=== PATIENT | female | born 1950 | race Caucasian/White ===

== ENCOUNTER 2017-06-29 17:24 | Inpatient (IN) | payer MEDICARE, OTHER ==
[~2017-06-29] VITALS: Ht 160 cm; Wt 101.6 kg
--- NOTE | ~2017-06-29 | EKG ---
PATIENT: MELISSA WYATT UNIT #: [id number] Ventricular Rate: 96 BPM Atrial Rate: 96 BPM P-R Interval: 188 ms QRS Duration: 80 ms Q-T Interval: 358 ms QTC Calculation(Bezet): 452 ms P [place]: 5 degrees Calculated R [place]: 86 degrees Calculated T [place]: 61 degrees Diagnosis Line: Normal sinus rhythm Diagnosis Line: Normal ECG Diagnosis Line: No previous ECGs available Diagnosis Line: Confirmed by NARINDER SHARMA MD ([id number]) on 07/01/2017 Diagnosis Line: 4:37:29 PM INTERPRETING MD: ZACHARY TEMPLE
--- NOTE | ~2017-06-29 | CR63 ---
[facility] A Service of [facility] RADIOLOGY TEXT RESULTS PATIENT: MELISSA WYATT LOCATION: [facility] [id number] : [birth year] UNIT #: [id number] AGE: [address]: ESTHER WHITE V SEX: F ORDER DR: [id number] [facility] [address] [place], [place] [address] [id number] I MR#: [id number] Acc #: [id number] NAME: MELISSA WYATT. : 1950 SEX: F STUDY DATE/TIME: 06/30/2017 7:19 UNIT: [facility] ROOM: [facility] STUDY DESCRIPTION: CR Chest 2 View Attending Physician: Esther White M.D. Ordering Physician: Rupali Jin M.D. Primary Care Physician: Paulo Sawant M.D. MEDICAL IMAGING REPORT This report is preliminary unless electronic signature is present EXAM Frontal chest 06/30/2017 INDICATION 67-year-old female with COPD, dizziness, weakness, symptoms began today. Short of breath. TECHNIQUE Frontal chest performed and compared with 08/17/2015. FINDINGS Postop changes of thoracolumbar fusion. The heart is enlarged but stable. Mediastinal prominence unchanged for technical factors. Vascularity within normal limits. Lung volumes are low. The right lung is clear and there is persistent pleural reaction or less likely chronic pleural fluid on the left with associated probable atelectasis in the left lung base. There is pleural thickening in the left lung apex unchanged as well. IMPRESSION Low lung volumes with persistent cardiomegaly. Opacities in the left lung base favored to represent chronic atelectasis and pleural reaction rather than pleural fluid. Dictated by... Perry Nuñez M.D. THIS IS AN ELECTRONICALLY VERIFIED REPORT Perry Nuñez M.D. at 06/30/2017 1:43 PM Robert TD: 06/30/2017 12:27 JOB #: [id number] [facility] A Service of [facility] RADIOLOGY TEXT RESULTS PATIENT: MELISSA WYATT LOCATION: [facility] [id number] : [birth year] UNIT #: [id number] AGE: [address]: CINDY,ESTHER V SEX: F ORDER DR: MEDICAL IMAGING REPORT Page 1 of 1 COPY
--- NOTE | ~2017-06-29 | CT4 ---
[facility] A Service of [facility] RADIOLOGY TEXT RESULTS PATIENT: MELISSA WYATT LOCATION: [place] [address] : [birth year] UNIT #: [id number] AGE: [address]: FLORENTIN WHITEUJ V SEX: F ORDER DR: [id number] [address] [address] [id number] E MR#: [id number] Acc #: [id number] NAME: MELISSA WYATT : 1950 SEX: F STUDY DATE/TIME: 06/29/2017 18:21 UNIT: SED ROOM: STUDY DESCRIPTION: CT Abd and Pelv Wo Cont Attending Physician: Killian Nichols M.D. Ordering Physician: Priyanka Guerrero M.D. Primary Care Physician: Paulo Sawant M.D. MEDICAL IMAGING REPORT This report is preliminary unless electronic signature is present. EXAM CT abdomen and pelvis without contrast. HISTORY Left side abdomen pain and diarrhea for [address] exam was performed with one or more of the following radiation dose reduction techniques: automatic exposure control, adjustment of mA and/or kV according to patient size, and iterative reconstruction. FINDINGS CT abdomen and pelvis was performed without contrast. CT ABDOMEN: Morphologic changes of cirrhosis with nodular hepatic contour and relative hypertrophy of the left hepatic lobe and caudate lobe. The spleen, pancreas, kidneys, and adrenal glands are normal. 2 mm nonobstructing stone in the mid right kidney. Normal caliber abdominal aorta. No adenopathy. No ascites. No bowel dilatation. No inflammatory stranding. Multilevel spinal fusion from the lower thoracic to mid lumbar spine. CT PELVIS: Small calcified uterine fibroid measures approximately 1.5 cm. Sigmoid diverticulosis but no diverticulitis. No free fluid. Urinary bladder is normal. IMPRESSION 1. No acute findings. 2. No urinary obstruction. 3. 2 mm nonobstructing stone in the mid right kidney. 4. Sigmoid diverticulosis but no diverticulitis. 5. Incidental 1.5 cm calcified uterine fibroid. [facility] A Service of [facility] RADIOLOGY TEXT RESULTS PATIENT: MELISSA WYATT LOCATION: [place] [address]- : [birth year] UNIT #: [id number] AGE: [address]: ESTHER WHITE V SEX: F ORDER DR: 6. Morphologic changes of cirrhosis. Dictated by... Rafael Meng M.D. THIS IS AN ELECTRONICALLY VERIFIED REPORT Rafael Meng M.D. at 06/30/2017 11:22 PM CASE/rylee TD: 06/30/2017 00:06 JOB #: [id number] MEDICAL IMAGING REPORT Page 1 of 1
--- NOTE | ~2017-06-29 | DS ---
Unit #: [id number] #: [id number] Patient: MELISSA WYATT [id number] [address] [place], [place] [address] [id number] I MR#: [id number] NAME: MELISSA WYATT. ROOM: [facility] Age: 67 Sex: F Admission Date: 06/29/2017 : 1950 Discharge Date: 07/02/2017 Attending Physician: Corbin Pak M.D. Primary Care Physician: Paulo Sawant M.D. DISCHARGE SUMMARY FINAL DIAGNOSES Hyponatremia. SECONDARY DIAGNOSES 1. Hypertension. 2. Gastroesophageal reflux disease. 3. Depression. 4. Chronic back pain. 5. Chronic obstructive pulmonary disease. 6. Diabetes mellitus. CONSULTS Dr. Luc Johnson. HOSPITAL COURSE The patient is a 67-year-old female who presented with hyponatremia. Sodium was as low as 110. She has a history of some cirrhosis, diabetes and some depression. She was on SSRI, as well as diuretics. Nephrology was consulted who felt that this may have been multifactorial. Diuretics were discontinued, as well as Lexapro. 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 Her sodium was up to 127 today. She is evaluated, suitable and stable for discharge with outpatient follow up. She feels better today. We will discharge the patient home with home health if she is agreeable. MEDICATIONS ON DISCHARGE 1. Neurontin 300 mg p.o. q.8 hours. 2. Zyban 150 mg p.o. daily. 3. Lexapro is discontinued. 4. Metformin 500 mg p.o. b.i.d. per home dose. 5. Klonopin 0.5 mg p.o. per home dose. 6. Triamterene/Hydrochlorothiazide has been discontinued. 7. Norvasc 5 mg p.o. daily. 8. Lortab 10/325 mg 1 tablet p.o. q.4 hours p.r.n. pain per home dose. 9. Omeprazole per home dose. 10. Robaxin 750 mg p.o. q.8 hours per home dose. DISCHARGE PLAN She is to schedule followup with her PCP in next 3-5 days. NOTE: Time spent 22 minutes. Unit #: [id number] #: [id number] Patient: MELISSA WYATT Dictated by... Helen Stone TD: 07/02/2017 14:32 JOB #: [id number] DISCHARGE SUMMARY Page 1 of 1 X Koko Carney MD DISCHARGE SUMMARY
--- NOTE | ~2017-06-29 | US84 ---
[id number] [facility] [address] [place], [place] [address] [id number] I MR#: [id number] Acc #: [id number] NAME: MELISSA WYATT : 1950 SEX: F STUDY DATE/TIME: 06/30/2017 7:50 UNIT: [facility] ROOM: 574 STUDY DESCRIPTION: US LE Veins Complete Khai Stdy Attending Physician: Corbin Pak M.D. Ordering Physician: Rupali Jin M.D. Primary Care Physician: Paulo Sawant M.D. MEDICAL IMAGING REPORT This report is preliminary unless electronic signature is present EXAM Bilateral lower extremity venous duplex 06/30/2017 HISTORY Bilateral lower extremity pain for 1 year, worsening in the last week with increasing shortness of breath. Evaluate for deep vein thrombosis. TECHNIQUE Venous ultrasound examination of both lower extremities was performed using grayscale, spectral Doppler and color flow Doppler imaging. FINDINGS The examination is negative. There is no evidence of deep venous thrombus from the groin to the lower calf bilaterally. Visualized greater saphenous veins are also patent. IMPRESSION Negative examination. No evidence of lower extremity deep venous thrombosis. Dictated by... Kasi Mendieta M.D. THIS IS AN ELECTRONICALLY VERIFIED REPORT Kasi Mendieta M.D. at 07/01/2017 7:27 AM TIESHA/lindy TD: 06/30/2017 12:30 JOB #: [id number] MEDICAL IMAGING REPORT Page 1 of 1 COPY
--- NOTE | ~2017-06-29 | CO ---
Unit #: [id number] #: [id number] Patient: MARIIA CARMICHAEL [id number] [address] [address] [id number] I MR#: [id number] NAME: MARIIA CARMICHAEL. ROOM: 574 Age: 67 Sex: F Admission Date: 06/29/2017 : 1950 Attending Physician: Corbin Pak M.D. Primary Care Physician: Paulo Sawant M.D. Consultation Date: 06/30/2017 CONSULTATION REPORT REASON FOR CONSULTATION Hyponatremia. Thank you very much for asking me to see this patient in consultation. HISTORY OF PRESENT ILLNESS Ms. Mariia Carmichael is a 67-year-old female, who has a history of underlying chronic obstructive pulmonary disease, hypertension, diabetes, who presented to the hospital with one week of weakness, dizziness, nausea, intermittent diarrhea, some numbness in her hands and feet, who upon presentation to [facility] had a sodium of 110. She was transferred here and admitted. She was started on IV fluids. Her sodium is up to 114 this morning. Because of this sodium problem I was asked to see the patient. The patient states that she never had any problem with her sodium that she knows of, and on reviewing her records in August 2015 she had a sodium of 135, in January 2015 128, and May 2009 a sodium of 132. She was started on normal saline here and several medicines were changed including her Dyazide was discontinued and her Lexapro was discontinued. She currently states that she is feeling some better but no nausea, still has some chronic back pain, no significant diarrhea currently, no chest pain, no shortness of breath, no urinary symptoms, no significant swelling. PAST MEDICAL HISTORY 1. History of chronic obstructive pulmonary disease. 2. History of hypertension. 3. History of non insulin dependent diabetes mellitus. 4. History of arthritis. 5. History of anxiety. 6. History of depression. 7. History of chronic back pain. 8. Status post cholecystectomy. 9. She has a history of gastroesophageal reflux disease. ALLERGIES No known drug allergies. SOCIAL HISTORY She still smokes but no alcohol since 2014. HOME MEDICATIONS Include: 1. Dyazide 2. Lexapro Unit #: [id number] #: [id number] Patient: CARMICHAEL,MARIIA E 3. Glucophage 4. Omeprazole 5. Neurontin 6. Zyban 7. Klonopin 8. Lortab 9. Robaxin REVIEW OF SYSTEMS As mentioned in the history of present illness, otherwise negative. FAMILY HISTORY Noncontributory. PHYSICAL EXAMINATION GENERAL: She is alert and oriented. VITAL SIGNS: Temperature is 98.2, pulse 83-101, blood pressure 113-160/69-88. HEENT: She is normocephalic, atraumatic. Pupils are equal, round, and reactive to light. Extraocular muscles are intact. TMs appear to be normal. Mouth, clear. No erythema. No exudate. NECK: Supple. No jugular venous distention. No lymphadenopathy. CARDIAC: She appears to have a regular rhythm without a rub, no S3 or S4. LUNGS: Clear bilaterally. No wheezes, rhonchi, or rales. ABDOMEN: Obese. Bowel sounds positive. Nontender. Soft. EXTREMITIES: She has no lower extremity swelling, pulses are intact to the lower extremities. JOINTS: No joint pain or joint swelling. SKIN: No rashes. NEURO: Appears to be intact to motor and sensory grossly. : Deferred. DIAGNOSTIC STUDIES LABORATORY: Laboratory data this morning shows sodium 114, potassium 3.5, chloride 78, bicarb is 27, BUN of 13, creatinine 0.9, glucose of 114, calcium is 8.6, magnesium is 2, albumin is 4.4, BNP 63. Serum osmolality 242. TSH is 0.59. INR is 1.2. ABG shows pH 7.263, pCO2 of 52, pO2 of 59 on room air. Hemoglobin is 11.5, white count 10,500, platelets 242,000. Urinalysis showed specific gravity of 1.03, otherwise negative. IMAGING: CT of the abdomen and pelvis showed two small nonobstructing stones in the right kidney, diverticulosis, but not diverticulitis, and a cirrhotic pattern on the liver. ASSESSMENT/PLAN Hyponatremia, this is a lady who has either euvolemia vs a hypovolemic, hyponatremia. Her sodium has come up from 110 to 114, so certainly heading in the right direction, and moving very slow correction. Certainly she has multiple etiologies of her hyponatremia including her Dyazide diuretic with hydrochlorothiazide vs increased water intake vs possible SIADH from chronic obstructive pulmonary disease and Lexapro vs volume depletion from diarrhea vs other. I am going to keep her on some normal saline decrease the rate to 60, her sodium has not improved in the last couple of hours, so unsure if some of this could be a SIADH-type picture. I am going to put her on a p.o. fluid restriction, continue BNP q.4 hours stat and have them call me with those results for now. We will check a cortisol level in the a.m. as well as a magnesium phosphorous uric acid and will also given one dose of potassium today as well and again Unit #: [id number] #: [id number] Patient: MARIIA CARMICHAEL fluid restriction and IV fluids, hold the medications and will follow very closely. Dictated by..Helen Garcia/milli TD: 07/01/2017 07:55 JOB #: [id number] CONSULTATION REPORT Page 1 of 1 X Emmy Johnson MD X CONSULTATION REPORT
--- NOTE | ~2017-06-29 | HP ---
Unit #: [id number] #: [id number] Patient: MELISSA WYATT [id number] [address] [address] [id number] I MR#: [id number] NAME: MELISSA WYATT. ROOM: 574 Age: 67 Sex: F Admission Date: 06/29/2017 : 1950 Attending Physician: Karla Washington M.D. Primary Care Physician: Paulo Sawant M.D. HISTORY AND PHYSICAL CHIEF COMPLAINT Hyponatremia. HISTORY This pleasant 67-year-old female with AODM, hypertension, anxiety/depression, chronic back pain, was transferred from [facility] emergency department for hyponatremia. Patient complains of chronic leg pain. She states, however, that over the past week she has felt weaker in her legs, is nauseous, and experiencing quite a bit of diarrhea along with generalized weakness and dizziness. She has been drinking quite a bit of water, but not taking in other food or beverages. She presented to [facility] emergency department this evening where her sodium was found to be 110. She was bolused with 500 mL of saline, given Zofran and 2 g of magnesium sulfate for a low magnesium. Current sodium is 112. Patient does have a history of cirrhosis likely related to prior alcohol abuse. She also takes an SSRI and Dyazide, likely contributing to her hyponatremia. Her main concern currently is that of her chronic leg pain and insomnia. PAST MEDICAL HISTORY 1. AODM with likely peripheral neuropathy. 2. Essential hypertension. 3. Anxiety and depression. 4. Chronic back pain. 5. GERD. 6. COPD. ALLERGIES None. HOME MEDICATIONS 1. Lortab 10/325 one tablet q.4 hours as needed. 2. KlonoPIN 0.5 mg b.i.d. 3. Zyban SR 150 mg daily. 4. Neurontin 300 mg t.i.d. 5. Robaxin 750 mg t.i.d. 6. Metformin 500 mg b.i.d. 7. Lexapro 20 mg daily. 8. Dyazide 1 each day. 9. Omeprazole 20 mg daily. FAMILY HISTORY Cirrhosis secondary to alcohol abuse. Unit #: [id number] #: [id number] Patient: MELISSA WYATT SOCIAL HISTORY The patient lives with her fiance. She stopped drinking in 2014. She smokes two packs per day of tobacco. REVIEW OF SYSTEMS Notable for insomnia, chronic leg pain, weakness, dizziness, nausea, diarrhea, diabetes, hypertension, anxiety, depression, back pain, GERD, COPD, tobacco abuse, and abovementioned surgeries. All other systems were reviewed and otherwise negative. PHYSICAL EXAMINATION GENERAL APPEARANCE: 67-year-old, morbidly obese female currently in no acute distress. VITAL SIGNS: Temperature 97.9, pulse 99, respirations 20, blood pressure 177/99, and O2 saturation is 96% on room air. HEENT: Eyes: PERRLA. Extraocular muscles are intact. Pharynx is benign. NECK: Supple without adenopathy or thyromegaly. CHEST: Clear. CARDIAC: Normal S1 and S2 without S3, S4, or murmur. ABDOMEN: Bowels sounds are present. Mild hepatomegaly on exam. Nontender. No masses. EXTREMITIES: Without C, C, or E. NEUROLOGIC: Patient is awake and alert. She seems a little bit confused. Her cranial nerves are intact, except that she is hard of hearing. She has equal strength throughout, but is generally weak. DIAGNOSTIC STUDIES LABS: Hematocrit is 35.9 and normal white count and platelet count. Cardiac markers are negative. Normal coags. SMA-12: Glucose is 122; sodium 110, which has improved to 112; chloride 71; BUN 18; creatinine 1.2; AST 48; and magnesium 1.5. Alcohol level negligible. BNP and lipase normal. Urinalysis: Specific gravity greater than 1.030. IMAGING: CT scan of the abdomen and pelvis show cirrhosis, fibroid uterus, nonobstructing kidney stone, diverticular disease. CARDIOVASCULAR: EKG: Normal sinus rhythm, rate 96. Normal appearing. ASSESSMENT 1. Hyponatremia, likely multifactorial. Patient is on an SSRI and Dyazide. Also has underlying cirrhosis. May also be a bit dehydrated with current nausea and diarrhea as her specific gravity is greater than 1.030. She has had limited p.o. intake recently, except for drinking water. 2. Nausea and diarrhea. 3. Essential hypertension. 4. Anxiety and depression. 5. Chronic obstructive pulmonary disease and ongoing tobacco abuse. 6. Adult-onset diabetes mellitus with likely peripheral neuropathy and chronic leg pain. 7. Cirrhosis. Patient stopped drinking in 2014. 8. Chronic pain. 9. Gastroesophageal reflux disease. PLANS 1. Change Dyazide to Norvasc. Unit #: [id number] #: [id number] Patient: MELISSA WYATT 2. Gentle normal saline and monitor chemistries carefully. 3. Hold SSRI. 4. Check thyroid function test and chest x-ray. 5. Obtain urine sodium. 6. Stool cultures. 7. Change water to other beverages. 8. Low dose Lovenox for DVT prophylaxis. 9. Check bilateral venous Dopplers of the legs as daughter has concerns about patient's chronic leg pain. Dictated by Heeln Ibarra/nahun TD: 06/30/2017 05:13 JOB #: [id number] CC: Ana Zamora Aprn HISTORY AND PHYSICAL Page 1 of 1 X Rupali Jin MD HISTORY AND PHYSICAL
[~2017-06-29 17:24] MED LIST: COZAAR PO; EFFEXOR PO; HYDROCODON-ACE1 EAC5 PO; KLONOPIN PO; KLONOPIN1 MG PO; LEVAQUIN PO; LEVAQUIN750 M1 PO; LEXAPRO PO; MEDROL PO; NORVASC PO; OMEPRAZOLE20 M1 PO; TRIAMTERENE-HCT1 TA8 PO; VICODIN PO
[2017-06-29] MEDS ORDERED: WELLBUTRIN SR150 M1 (17:40)
[2017-06-29] MEDS ORDERED: DYAZIDE 371 CAP 37.5 (17:41)
[2017-06-29] MEDS ORDERED: ROBAXIN 750750 MG (17:41)
[2017-06-29] MEDS ORDERED: GLUCOPHAGE500 MG (17:41)
[2017-06-29] MEDS ORDERED: LEXAPRO20 MG ×2 (17:41→17:42)
[2017-06-29] MEDS ORDERED: GABAPENTIN300 MG (17:41)
[2017-06-29] MEDS ORDERED: OMEPRAZOLE40 M1 ×2 (17:42→23:28)
[2017-06-29 18:18] LABS: BASOPHIL# 0.1 X10e3 (0-0.3); DIFF IND NO; EOSINOPHIL# 0.1 X10e3 (0-0.7); EOSINOPHIL% 1.3 % (0.0-7.0); HEMATOCRIT 35.9 % (35.0-45.0); HEMOGLOBIN 12.5 gm/dL (12.0-16.0); LYMPHOCYTE# 1.4 X10e3 (1.0-3.5); LYMPHOCYTE% 13.3 % (17.0-45.0); MEAN CORPUSCULAR HEMOGLOBIN 27.4 PG (28-34); MEAN CORPUSCULAR HGB CONC 34.7 g/dL (30-36); MEAN PLATELET VOLUME 7.6 FL (6.5-11.5); MONOCYTE# 0.5 X10e3 (0-1.0); MONOCYTE% 5.1 % (3.0-12.0); NEUTROPHIL# 8.3 X10e3 (1.5-7.1); NEUTROPHIL% 79.3 % (40-75); PLATELET COUNT 267 X10e3 (140-420); RED BLOOD COUNT 4.54 X10e (3.90-5.30); RED CELL DISTRIBUTION WIDTH 15.5 % (11.0-15.5); WHITE BLOOD COUNT 10.4 X10e3 (4.0-10.5)
[2017-06-29 18:31] LABS: INR 1.2; PROTHROMBIN TIME (PATIENT) 14.1 SECONDS (9.5-12.4)
[2017-06-29 18:34] LABS: POC - CKMB 7.3 ng/mL (0.0-7.9)
[2017-06-29 18:35] LABS: POC - MYOGLOBIN >500.0 ng/mL (0.0-169.0); POC - TROPONIN <0.05 ng/mL (<=0.05)
[2017-06-29 18:36] LABS: MAGNESIUM 1.5 mg/dL (1.6-3.0)
[2017-06-29 18:43] LABS: ALBUMIN SERUM 4.4 g/dL (3.5-5.0); ALKALINE PHOSPHATASE 73 U/L (32-92); ALT (SGPT) 26 U/L (10-40); AST (SGOT) 48 U/L (10-42); BILIRUBIN,TOTAL 0.6 mg/dL (0.2-2.0); BLOOD UREA NITROGEN 18 mg/dL (9-23); CALCIUM SERUM 9.3 mg/dL (8.4-10.2); CARBON DIOXIDE 27 mmol/L (22-31); CHLORIDE 71 mmol/L (100-111); CREATININE SERUM 1.2 mg/dL (0.6-1.4); GLOM FILT RATE Estimated 47.4 mL/min (>60); GLUCOSE FASTING 122 mg/dL (70-110); LIPASE 34 U/L (22-51); POTASSIUM 4.2 mmol/L (3.5-5.1); PROTEIN TOTAL SERUM 8.3 g/dL (6.0-8.3)
[2017-06-29 18:44] LABS: ALCOHOL BLOOD <5 mg/dL ([, 0]); BILIRUBIN, DIRECT <0.1 mg/dL (0.0-0.2); BILIRUBIN,INDIRECT 0.5 mg/dL (0.0-0.9); SODIUM 110 mmol/L (135-145)
[2017-06-29 18:57] LABS: URINE SOURCE CLEAN CATCH
[2017-06-29 18:59] LABS: URINE APPEARANCE CLEAR; URINE BLOOD NEG (NEG); URINE COLOR YELLOW; URINE GLUCOSE NEG (NORM); URINE KETONE NEG (NEG); URINE LEUKOCYTE ESTERASE NEG (NEG); URINE NITRATE NEG (NEG); URINE PH 5.5 (5-8); URINE PROTEIN NEG (NEG); URINE SPECIFIC GRAVITY >=1.030 (1.003-1.035); URINE UROBILINOGEN 0.2 MG/DL (NORM)
[2017-06-29 19:01] LABS: MICRO INDICATED? NO; URINE BILIRUBIN NEG (NEG)
[2017-06-29 20:55] LABS: POC - CKMB 6.5 ng/mL (0.0-7.9); POC - MYOGLOBIN >500.0 ng/mL (0.0-169.0); POC - TROPONIN <0.05 ng/mL (<=0.05)
[2017-06-29] MEDS ORDERED: LORTAB 10-3251 EACH PO (23:17)
[2017-06-29] MEDS ORDERED: KLONOPIN0.5 M3 PO (23:20)
[2017-06-29] MEDS ORDERED: WELLBUTRIN SR150 MG PO (23:21)
[2017-06-29] MEDS ORDERED: NEURONTIN300 MG PO (23:21)
[2017-06-29] MEDS ORDERED: ROBAXIN 750750 M1 PO (23:25)
[2017-06-29] MEDS ORDERED: GLUCOPHAGE500 MG PO (23:26)
[2017-06-29] MEDS ORDERED: LEXAPRO20 MG PO (23:27)
[2017-06-29] MEDS ORDERED: DYAZIDE 37.5-21 EACH (23:28)
[2017-06-29 23:32] LABS: GLOM FILT RATE Estimated 59.1 mL/min (>60)
[2017-06-30 03:16] LABS: BASOPHIL# 0.1 X10e3 (0-0.3); BASOPHIL% 1.1 % (0-2.5); DIFF IND NO; EOSINOPHIL# 0.1 X10e3 (0-0.7); HEMATOCRIT 33.5 % (35.0-45.0); HEMOGLOBIN 11.5 gm/dL (12.0-16.0); LYMPHOCYTE# 1.9 X10e3 (1.0-3.5); LYMPHOCYTE% 17.9 % (17.0-45.0); MEAN CORPUSCULAR HEMOGLOBIN 27.6 PG (28-34); MEAN CORPUSCULAR HGB CONC 34.5 g/dL (30-36); MEAN PLATELET VOLUME 7.5 FL (6.5-11.5); MONOCYTE# 0.6 X10e3 (0-1.0); MONOCYTE% 5.9 % (3.0-12.0); NEUTROPHIL# 7.8 X10e3 (1.5-7.1); NEUTROPHIL% 74.1 % (40-75); PLATELET COUNT 242 X10e3 (140-420); RED BLOOD COUNT 4.18 X10e (3.90-5.30); RED CELL DISTRIBUTION WIDTH 15.3 % (11.0-15.5); WHITE BLOOD COUNT 10.5 X10e3 (4.0-10.5)
[2017-06-30 03:42] LABS: CALCIUM SERUM 8.7 mg/dL (8.4-10.2); GLOM FILT RATE Estimated 59.1 mL/min (>60); POTASSIUM 3.6 mmol/L (3.5-5.1)
[2017-06-30 07:19] LABS: THYROID STIMULATING HORMONE 0.59 uIU/ml (0.34-5.60)
[2017-06-30 07:28] LABS: FREE THYROXIN (T4) 0.94 ng/dL (0.58-1.64)
[2017-06-30 09:13] LABS: CALCIUM SERUM 8.8 mg/dL (8.4-10.2); GLOM FILT RATE Estimated 59.1 mL/min (>60); POTASSIUM 3.6 mmol/L (3.5-5.1)
[2017-06-30 10:31] LABS: ARTERIAL BLD GAS O2 SATURATION 87.8 % (90.0-100.0); ARTERIAL BLOOD GAS CARBOXY HB 1.7 %sat (0.0-9.0); ARTERIAL BLOOD GAS HCO3 29.7 mmol/L; ARTERIAL BLOOD GAS MET HB 0.8 %sat (0.0-2.0); ARTERIAL BLOOD GAS pH 7.363 (7.350-7.450)
[2017-06-30 10:32] LABS: ARTERIAL BLOOD GAS ALLEN TEST NORMAL; ARTERIAL BLOOD GAS ART SITE RIGHT RADIAL; ARTERIAL BLOOD GAS DELIVERY ROOM AIR; ARTERIAL BLOOD GAS PCO2 52.3 mmHg (35.0-45.0); ARTERIAL BLOOD GAS PO2 59.6 mmHg (80.0-100); ARTERIAL DRAW? YES
[2017-06-30 11:19] LABS: BUN/CREATININE RATIO 14.44; CALCIUM SERUM 8.6 mg/dL (8.4-10.2); CREATININE SERUM 0.9 mg/dL (0.6-1.4); GLOM FILT RATE Estimated 67.1 mL/min (>60); POTASSIUM 3.5 mmol/L (3.5-5.1)
[2017-06-30 14:08] LABS: CALCIUM SERUM 8.7 mg/dL (8.4-10.2); GLOM FILT RATE Estimated 59.1 mL/min (>60); POTASSIUM 3.7 mmol/L (3.5-5.1)
[2017-06-30 17:45] LABS: BUN/CREATININE RATIO 16.25; CALCIUM SERUM 8.8 mg/dL (8.4-10.2); CREATININE SERUM 0.8 mg/dL (0.6-1.4); GLOM FILT RATE Estimated 77.4 mL/min (>60); POTASSIUM 3.7 mmol/L (3.5-5.1)
[2017-06-30 18:44] LABS: SODIUM URINE RANDOM 13 mmol/L
[2017-06-30 19:06] LABS: OSMOLALITY,URINE 358 mOsmo/kg (250-900)
[2017-06-30 21:53] LABS: BUN/CREATININE RATIO 14.44; CALCIUM SERUM 9.1 mg/dL (8.4-10.2); CREATININE SERUM 0.9 mg/dL (0.6-1.4); GLOM FILT RATE Estimated 67.1 mL/min (>60); POTASSIUM 4.1 mmol/L (3.5-5.1)
[2017-07-01 03:41] LABS: ARTERIAL BLD GAS O2 SATURATION 97.1 % (90.0-100.0); ARTERIAL BLOOD GAS CARBOXY HB 0.1 %sat (0.0-9.0); ARTERIAL BLOOD GAS MET HB 0.6 %sat (0.0-2.0); ARTERIAL BLOOD GAS pH 7.382 (7.350-7.450)
[2017-07-01 03:43] LABS: ARTERIAL BLOOD GAS ALLEN TEST NORMAL; ARTERIAL BLOOD GAS ART SITE LEFT RADIAL; ARTERIAL BLOOD GAS DELIVERY NASAL CANNULA; ARTERIAL BLOOD GAS PCO2 50.6 mmHg (35.0-45.0); ARTERIAL DRAW? YES
[2017-07-01 06:48] LABS: CALCIUM SERUM 8.9 mg/dL (8.4-10.2); CREATININE SERUM 0.8 mg/dL (0.6-1.4); GLOM FILT RATE Estimated 77.4 mL/min (>60); MAGNESIUM 1.7 mg/dL (1.6-3.0); PHOSPHOROUS 3.8 mg/dL (2.5-4.6); POTASSIUM 3.8 mmol/L (3.5-5.1); URIC ACID 5.8 mg/dL (2.6-7.2)
[2017-07-01 09:50] LABS: CALCIUM SERUM 8.9 mg/dL (8.4-10.2); GLOM FILT RATE Estimated 59.1 mL/min (>60); POTASSIUM 3.9 mmol/L (3.5-5.1)
[2017-07-01 14:09] LABS: CALCIUM SERUM 9.1 mg/dL (8.4-10.2); GLOM FILT RATE Estimated 59.1 mL/min (>60); POTASSIUM 3.9 mmol/L (3.5-5.1)
[2017-07-01 16:45] LABS: BUN/CREATININE RATIO 12.22; CALCIUM SERUM 8.8 mg/dL (8.4-10.2); CREATININE SERUM 0.9 mg/dL (0.6-1.4); GLOM FILT RATE Estimated 67.1 mL/min (>60); POTASSIUM 4.2 mmol/L (3.5-5.1)
[2017-07-01 21:46] LABS: BUN/CREATININE RATIO 10.9; CALCIUM SERUM 8.7 mg/dL (8.4-10.2); CREATININE SERUM 1.1 mg/dL (0.6-1.4); GLOM FILT RATE Estimated 52.7 mL/min (>60); POTASSIUM 4.3 mmol/L (3.5-5.1)
[2017-07-02 01:21] LABS: BUN/CREATININE RATIO 12.22; CALCIUM SERUM 8.6 mg/dL (8.4-10.2); CREATININE SERUM 0.9 mg/dL (0.6-1.4); GLOM FILT RATE Estimated 67.1 mL/min (>60); POTASSIUM 4.5 mmol/L (3.5-5.1)
[2017-07-02 08:23] LABS: CALCIUM SERUM 8.6 mg/dL (8.4-10.2); GLOM FILT RATE Estimated 59.1 mL/min (>60); MAGNESIUM 1.9 mg/dL (1.6-3.0); POTASSIUM 4.4 mmol/L (3.5-5.1)
[2017-07-02] MEDS ORDERED: NORVASC PO (11:31)
[2017-07-02] MEDS ORDERED: [UNRECOGNIZED DRUG - REMARK] (11:32)
[2017-07-02] MEDS ORDERED: OMEPRAZOLE40 M1 PO (11:53)
[2017-07-02 14:50] LABS: BUN/CREATININE RATIO 13.75; CALCIUM SERUM 8.5 mg/dL (8.4-10.2); CREATININE SERUM 0.8 mg/dL (0.6-1.4); GLOM FILT RATE Estimated 77.4 mL/min (>60); POTASSIUM 4.1 mmol/L (3.5-5.1)
[2017-07-02] MEDS ORDERED: [UNRECOGNIZED DRUG - REMARK] (16:20)
[2017-07-02] MEDS ORDERED: SODIUM CHLORIDE1 GM PO (16:20)
[2017-07-05 01:06] LABS: HA AB IGM (HEPPAN) Nonreactive (()); HB CORE AB IGM (HEPPAN) Nonreactive (Nonreactive); HB S AG (HEPPAN) Nonreactive (Nonreactive); HEP C AB (HEPPAN) Nonreactive (Nonreactive); HEP C AB SIGNAL TO CUTOFF 0.02 ratio (<1.00)
== END 2017-07-02 17:45 | disposition home health service (06) | DRG 645 ==
LOC: SED 17:24 → CEDOF 19:33 → SED 19:45 → C5C 19:45 → CEDOF 23:50 → C5C 23:50 → SED 23:50 → C5C 06-30 08:25
PROVIDERS: Family Medicine; Internal Medicine; Internal Medicine Nephrology; Student in an Organized Health Care Education/Training Program
DX: E22.2 Syndrome of inappropriate secretion of antidiuretic hormone (principal); E11.42 Type 2 diabetes mellitus with diabetic polyneuropathy; K74.60 Unspecified cirrhosis of liver; J44.9 Chronic obstructive pulmonary disease, unspecified; Z79.84 Long term (current) use of oral hypoglycemic drugs; I10 Essential (primary) hypertension; F41.9 Anxiety disorder, unspecified; F32.9 Major depressive disorder, single episode, unspecified; G89.29 Other chronic pain; M54.9 Dorsalgia, unspecified; K21.9 Gastro-esophageal reflux disease without esophagitis; F17.210 Nicotine dependence, cigarettes, uncomplicated; R11.0 Nausea; R19.7 Diarrhea, unspecified; Z90.49 Acquired absence of other specified parts of digestive tract
CPT/HCPCS: 36415; 36600; 71020; 74176; 80048; 80074; 80076; 81003; 82140; 82533; 82553; 82607; 82803; 82947; 83690; 83735; 83874; 83880; 83930; 83935; 84100; 84300; 84439; 84443; 84484; 84550; 85025; 85610; 85730; 93005; 93970; 94640; 94660; 94760; 96361; 96365; 96366; 96375; 99285; G0480; J1650; J1815; J2405; J3475